=== PATIENT | male | born 1950 | race Caucasian/White ===

== ENCOUNTER 2016-12-01 05:51 | Inpatient (IN) | payer OTHER, BC ==
[2016-11-29 16:46] VITALS: BMI 34.3
[2016-12-01] MEDS ORDERED: BUPIVACAINE HCL/PF 2.5 MG/ML - 30 ML VIAL IJ ONE (07:01)
[2016-12-01] MEDS ORDERED: MIDAZOLAM HCL 2 MG/2 ML SINGLE DOSE VIAL ONE (07:01)
[2016-12-01] MEDS ORDERED: DEXAMETHASONE SOD PHOSPHATE/PF 10 MG/ML SDV ONE (07:01)
[2016-12-01] MEDS ORDERED: SODIUM CHLORIDE 0.9% P/F 10 ML VIAL IJ ONE (07:01)
[2016-12-01] MEDS ORDERED: ROPIVICAINE 0.2%/MORPH PF/KETOROLAC - 51ML DISP.SYRINGE IA ONE ×2 (07:59→09:21)
[2016-12-01] MEDS ORDERED: TRANEXAMIC ACID 1000 MG/10 ML VIAL ONE ×3 (07:59→08:58)
[2016-12-01] MEDS ORDERED: SUCCINYLCHOLINE CHLORIDE 200 MG/10 ML VIAL ONE (08:22)
[2016-12-01] MEDS ORDERED: BUPIVACAINE HCL/PF 0.5% (5MG/ML) 10 ML VIAL ONE (08:23)
[2016-12-01] MEDS ORDERED: ceFAZolin SODIUM 1 GM VIAL ONE ×2 (08:58→11:02)
[2016-12-01] MEDS ORDERED: KETOROLAC TROMETHAMINE 30 MG/1 ML VIAL ONE (09:07)
[2016-12-01] MEDS ORDERED: ONDANSETRON 4 MG/2 ML VIAL ONE (09:07)
[2016-12-01] MEDS ORDERED: DEXAMETHASONE SOD PHOSPHATE 4 MG/1 ML VIAL ONE (09:07)
[2016-12-01] MEDS ORDERED: TRANEXAMIC ACID 1000 MG/10 ML VIAL IVPUSH ONE (09:21)
[2016-12-01] MEDS ORDERED: CEFAZOLIN 2 GM in DEXTROSE 5%-WATER - 50 ML IVPB ONE (09:21)
[2016-12-01] MEDS ORDERED: GABAPENTIN 300 MG CAPSULE (FP) PO ONE (09:21)
[2016-12-01] MEDS ORDERED: CELECOXIB 200 MG CAPSULE PO ONE (09:21)
[2016-12-01] MEDS ORDERED: oxyCODONE HCL 10 MG SUSTAINED ACTING TABLET PO ONE (09:21)
[2016-12-01] MEDS ORDERED: PATIENT'S OWN MEDICATION (NON-FORMULARY) (Tadalafil [Cialis] 20 MG) PO PRN (09:39)
[2016-12-01] MEDS ORDERED: PATIENT'S OWN MEDICATION (NON-FORMULARY) (Ascorbate Calcium [Vitamin C] 500 MG) PO SCH (09:45)
[2016-12-01] MEDS ORDERED: PATIENT'S OWN MEDICATION (NON-FORMULARY) (Multivit-Min/Fa/Lycopen/Lutein [Centrum Silver T PO SCH (10:00)
[2016-12-01] MEDS ORDERED: PATIENT'S OWN MEDICATION (NON-FORMULARY) (Lisinopril/Hydrochlorothiazide [Lisinopril-Hctz PO SCH (10:00)
[2016-12-01] MEDS ORDERED: PROPOFOL 20 ML ONE (10:04)
[2016-12-01] MEDS ORDERED: ONDANSETRON 4 MG/2 ML VIAL IVPUSH PRN (12:48)
[2016-12-01] MEDS ORDERED: ROPIVACAINE 0.2% 400ML 400 ML ML NR ONE (12:48)
[2016-12-01] MEDS ORDERED: LACTATED RINGERS SOLUTION 1,000 ML IV SCH ×2 (13:00→13:30)
[2016-12-01] MEDS ORDERED: ONDANSETRON 4 MG/2 ML VIAL IVPB PRN (13:04)
[2016-12-01] MEDS ORDERED: MAG HYDROX/AL HYDROX/SIMETH 30 ML UNIT-DOSE CUP PO PRN (13:05)
[2016-12-01] MEDS ORDERED: oxyCODONE HCL 5 MG TABLET ONE (13:18)
[2016-12-01] MEDS: ACETAMINOPHEN 325 MG TABLET (FP) PO SCH ×2 (13:20→20:16)
[2016-12-01] MEDS: oxyCODONE HCL 5 MG TABLET PO PRN ×3 (13:20→21:14)
[2016-12-01] MEDS ORDERED: TRANEXAMIC ACID 1000 MG/10 ML VIAL IVPB ONE (14:00)
[2016-12-01] MEDS: CEFAZOLIN 2 GM/D5W 50 ML IVPB SCH (16:48)
[2016-12-01] MEDS ORDERED: PT OWN MED DRAWER 7, Y5N ONE (21:09)
[2016-12-01] MEDS: ATORVASTATIN CA 10 MG TABLET (FP) PO SCH (21:16)
[2016-12-01] MEDS: GABAPENTIN 300 MG CAPSULE (FP) PO SCH (21:16)
[2016-12-01] MEDS: SENNOSIDES/DOCUSATE COMBO (SENNA PLUS) TABLET (UD) PO SCH (21:16)
[2016-12-01] MEDS: amLODIPine BESYLATE 5 MG TABLET (FP) PO SCH (21:16)
[2016-12-01] MEDS: ASCORBIC ACID 500 MG TABLET (FP) PO SCH (21:16)
[2016-12-01] MEDS: FERROUS SO4 325 MG TABLET (FP) PO SCH (21:16)
[2016-12-01] MEDS: oxyCODONE HCL 10 MG SUSTAINED ACTING TABLET PO SCH (21:16)
[2016-12-01] MEDS: LATANOPROST 0.005% OPHTH SOLN 2.5ML BOTTLE OU SCH (22:39)
[2016-12-02] MEDS: CEFAZOLIN 2 GM/D5W 50 ML IVPB SCH (00:18)
--- NOTE | 2016-12-02 01:34 | CONSULT ---
Consultation: REQUESTING PROVIDER: Dr. Westbrook CONSULT REQUEST: We have been asked to medically evaluate this patient for ( Medical Management). HISTORY OF PRESENT ILLNESS: This is a 66 y/o male s/p L-TKR POD #0. Patient reports no pain to Left knee PS 0/10. Patient reports having full sensation to his left leg and toes. Patient reports voiding, no flatulence, no BM. Patient tolerates PO fluids and solids. Patient denies fever, chills, cough, SOB, CP, AP , N/V/D, dysuria. PAST MEDICAL HISTORY: HTN HLD Vitamin D deficiency Prostate Ca PAST SURGICAL HISTORY: Radiation Tx- Prostate Ca 2010 Vasectomy 1996 R knee (torn meniscus) L knee (torn meniscus) 1995 Torn L Achilles Tendon 1986 SOCIAL HISTORY: Tobacco: Never Alcohol: Socially- Beer and Wine, consumed weekly Drugs: None Lives with Spouse FAMILY HISTORY: Mother: Lung Ca, ?Liver Ca age 76 Father: Accident, age 59 Allergies Allergy/AdvReac Type Severity Reaction Status Date / Time Penicillins Allergy Severe BLISTERS Verified 11/29/16 16:33 Home Medication List Medication Instructions Recorded Confirmed Type Amlodipine Besylate 5 mg PO HS 11/29/16 12/01/16 History Ascorbate Calcium [Vitamin C] 500 mg PO Q48H 11/29/16 12/01/16 History Atorvastatin Ca [Lipitor] 10 mg PO HS 11/29/16 12/01/16 History Cholecalciferol (Vitamin D3) 1,000 unit PO Q48H 11/29/16 12/01/16 History [Vitamin D3 -] Cyclobenzaprine HCl [Flexeril 10 5 mg PO BID PRN 11/29/16 12/01/16 History mg] Latanoprost 0.005% Eye Drops 1 drop OU HS 11/29/16 12/01/16 History [Xalatan 0.005% Eye Drops -] Lisinopril/Hydrochlorothiazide 1 each PO DAILY 11/29/16 12/01/16 History [Lisinopril-Hctz 20-12.5 mg Tab] Multivit-Min/FA/Lycopen/Lutein 1 each PO DAILY 11/29/16 12/01/16 History [Centrum Silver Tablet] Tadalafil [Cialis] 20 mg PO DAILY PRN 11/29/16 12/01/16 History REVIEW OF SYSTEMS: CONSTITUTIONAL: Absent: fever, chills, diaphoresis, generalized weakness, malaise, loss of appetite, weight change HEENT: Absent: rhinorrhea, nasal congestion, throat pain, throat swelling, difficulty swallowing, mouth swelling, ear pain, eye pain, visual changes CARDIOVASCULAR: Absent: chest pain, syncope, palpitations, irregular heart rate, lightheadedness , peripheral edema RESPIRATORY: Absent: cough, shortness of breath, dyspnea with exertion, orthopnea, wheezing, stridor, hemoptysis GASTROINTESTINAL: Absent: abdominal pain, abdominal distension, nausea, vomiting, diarrhea, constipation, melena, hematochezia GENITOURINARY: Absent: dysuria, frequency, urgency, hesitancy, hematuria, flank pain, genital pain MUSCULOSKELETAL: Absent: myalgia, arthralgia, joint swelling, back pain, neck pain SKIN: Absent: rash, itching, pallor HEMATOLOGIC/IMMUNOLOGIC: Absent: easy bleeding, easy bruising, lymphadenopathy, frequent infections ENDOCRINE: Absent: unexplained weight gain, unexplained weight loss, heat intolerance, cold intolerance NEUROLOGIC: Absent: headache, focal weakness or paresthesias, dizziness, unsteady gait, seizure, mental status changes, bladder or bowel incontinence PSYCHIATRIC: Absent: anxiety, depression, suicidal or homicidal ideation, hallucinations. PHYSICAL EXAMINATION Vital Signs - 24 hr 12/01/16 12/01/16 12/01/16 06:58 07:06 12:35 Temperature 98.2 F 97.9 F Pulse Rate 74 70 Respiratory 18 18 Rate Blood Pressure 142/80 123/58 O2 Sat by Pulse 97 100 Oximetry (%) 12/01/16 12/01/16 12/01/16 12:40 12:45 12:50 Temperature Pulse Rate 67 66 67 Respiratory 16 16 16 Rate Blood Pressure 123/59 122/59 122/58 O2 Sat by Pulse 100 100 100 Oximetry (%) 12/01/16 12/01/16 12/01/16 13:05 13:20 13:30 Temperature 97.9 F 97.9 F 97.9 F Pulse Rate 63 68 68 Respiratory 16 18 18 Rate Blood Pressure 130/66 136/81 136/81 O2 Sat by Pulse 98 98 Oximetry (%) 12/01/16 12/01/16 20:42 22:37 Temperature 98.7 F Pulse Rate 79 Respiratory 18 18 Rate Blood Pressure 123/58 O2 Sat by Pulse 98 99 Oximetry (%) GENERAL: Awake, alert, and fully oriented, in no acute distress. HEAD: Normal with no signs of trauma. EYES: Pupils equal, round and reactive to light, extraocular movements intact, sclera anicteric, conjunctiva clear. No lid lag. EARS, NOSE, THROAT: Ears normal, nares patent, oropharynx clear without exudates. Moist mucous membranes. NECK: Normal range of motion, supple without lymphadenopathy, JVD, or masses. LUNGS: Breath sounds equal, clear to auscultation bilaterally. No wheezes, and no crackles. No accessory muscle use. HEART: Regular rate and rhythm, normal S1 and S2 without murmur, rub or gallop. ABDOMEN:Obese, soft, nontender, not distended, normoactive bowel sounds, no guarding, no rebound, no masses. No hepatomegaly or splenomegaly. MUSCULOSKELETAL: Normal range of motion at all joints. No bony deformities or tenderness. No CVA tenderness. +surgical dressing dry and intact, +icepack UPPER EXTREMITIES: 2+ pulses, warm, well-perfused. No cyanosis. No clubbing. Cap refill <2 seconds. No peripheral edema. LOWER EXTREMITIES: 2+ pulses, warm, well-perfused. No calf tenderness. No peripheral edema. NEUROLOGICAL: Cranial nerves II-XII intact. Normal speech. Gait not observed. PSYCHIATRIC: Cooperative. Good eye contact. Appropriate mood and affect. SKIN: Warm, dry, normal turgor, no rashes or lesions noted. ASSESSMENT/PLAN: 66 y/o male with a PMHx of: HTN, HLD, OA, Prostate Ca. s/p L-TKR, POD #0 1. Continue Ortho Regimen 2. Monitor CBC, BMP 3. Monitor BP 4. Continue home meds, for HCTZ, check K, Cr, Hold for JANICE/Hyperkalemia 5. DVT/PPI Prophylaxis 6. PT 7. Incentive Spirometer Dispo: We will continue to follow the patient. Thank you for this consultative opportunity. Problem List - Problems (1) Status post total left knee replacement Code(s): Z96.652 - PRESENCE OF LEFT ARTIFICIAL KNEE JOINT (2) HTN (hypertension) Code(s): I10 - ESSENTIAL (PRIMARY) HYPERTENSION (3) HLD (hyperlipidemia) Code(s): E78.5 - HYPERLIPIDEMIA, UNSPECIFIED (4) Vitamin D deficiency Code(s): E55.9 - VITAMIN D DEFICIENCY, UNSPECIFIED (5) Prostate CA Code(s): C61 - MALIGNANT NEOPLASM OF PROSTATE (6) DVT prophylaxis Code(s): IKJ3323 - Visit type - Emergency Visit Emergency Visit: No - New Patient This patient is new to me today: Yes Date on this admission: 12/01/16 - Critical Care Critical Care patient: No
[2016-12-02] MEDS: ACETAMINOPHEN 325 MG TABLET (FP) PO SCH ×4 (02:00→20:43)
[2016-12-02] MEDS: oxyCODONE HCL 5 MG TABLET PO PRN ×4 (06:35→15:12)
[2016-12-02] MEDS: ASPIRIN 81 MG CHEWABLE TABLETS PO SCH ×2 (08:38→20:43)
[2016-12-02] MEDS ORDERED: CHOLECALCIFEROL (VITAMIN D3) 1,000 UNIT TABLET (FP) PO SCH (10:00)
[2016-12-02] MEDS ORDERED: ASCORBIC ACID 500 MG TABLET (FP) PO SCH (10:00)
[2016-12-02] MEDS: FERROUS SO4 325 MG TABLET (FP) PO SCH ×2 (10:10→21:53)
[2016-12-02] MEDS: PANTOPRAZOLE 40 MG TABLET (FP) PO SCH (10:11)
[2016-12-02] MEDS: MULTIVITAMINS THER W-MINERALS COMBO TABLET (FP) PO SCH (10:11)
[2016-12-02] MEDS: ASCORBIC ACID 500 MG TABLET (FP) PO SCH ×2 (10:11→21:51)
[2016-12-02] MEDS: HYDROCHLOROTHIAZIDE 12.5 MG CAPSULE (FP) PO SCH (10:11)
[2016-12-02] MEDS: LISINOPRIL 20 MG TABLET (FP) PO SCH (10:12)
[2016-12-02] MEDS: CELECOXIB 200 MG CAPSULE PO SCH (10:12)
[2016-12-02] MEDS: SENNOSIDES/DOCUSATE COMBO (SENNA PLUS) TABLET (UD) PO SCH ×2 (10:13→21:52)
[2016-12-02] MEDS: GABAPENTIN 300 MG CAPSULE (FP) PO SCH ×2 (10:13→21:53)
[2016-12-02] MEDS: oxyCODONE HCL 10 MG SUSTAINED ACTING TABLET PO SCH ×2 (10:13→21:52)
--- NOTE | 2016-12-02 10:24 | PN ---
Progress Note (short form) - Note Progress Note: 66M POD1 s/p TKR with spinal and CACB doing well. Pt pulled catheter out this morning. Site clean and dry. Sensory and motor function intact. AVSS, pain well controlled, no complications reported
--- NOTE | 2016-12-02 10:42 | PN ---
[id number] reports no pain to Left knee PS 0/10. Patient reports having full sensation to his left leg and toes. Patient reports voiding, no flatulence, no BM. Patient tolerates PO fluids and solids. Patient denies fever, chills, cough , SOB, CP, AP, N/V/D, dysuria. Vital Signs Period Temp Pulse Resp BP Sys/Sim Pulse Ox Last 24 Hr 97.9 F-98.7 F 63-83 16-19 122-136/58-81 98-100 GENERAL: The patient is awake, alert, and fully oriented, in no acute distress. HEAD: Normal with no signs of trauma. EYES: PERRL, extraocular movements intact, sclera anicteric, conjunctiva clear. No ptosis. ENT: Ears normal, nares patent, oropharynx clear without exudates, moist mucous membranes. NECK: Trachea midline, full range of motion, supple. LUNGS: Breath sounds equal, clear to auscultation bilaterally, no wheezes, no crackles, no accessory muscle use. HEART: Regular rate and rhythm, S1, S2 without murmur, rub or gallop. ABDOMEN: Soft, nontender, nondistended, normoactive bowel sounds, no guarding, no rebound, no hepatosplenomegaly, no masses. EXTREMITIES: 2+ pulses, warm, well-perfused, no edema. NEUROLOGICAL: Cranial nerves II through XII grossly intact. Normal speech, gait not observed. PSYCH: Normal mood, normal affect. SKIN: Warm, dry, normal turgor, no rashes or lesions noted Active Medications Generic Name Dose Route Start Last Admin Trade Name Freq PRN Reason Stop Dose Admin Acetaminophen 650 mg 12/01/16 20:00 12/02/16 08:10 Tylenol - PO 12/04/16 19:59 650 mg Q6H SAHRA Administration Al Hydroxide/Mg Hydroxide 30 ml 12/01/16 13:05 Mylanta Oral Suspension - PO Q4H PRN INDIGESTION Amlodipine Besylate 5 mg 12/01/16 22:00 12/01/16 21:16 Norvasc - PO 5 mg HS SAHRA Administration Ascorbic Acid 500 mg 12/01/16 22:00 12/02/16 10:11 Vitamin C - PO 500 mg BID SAHRA Administration Aspirin 81 mg 12/02/16 08:00 12/02/16 08:38 Asa - PO 12/31/16 07:59 81 mg BID@0800,2000 SAHRA Administration Atorvastatin Calcium 10 mg 12/01/16 22:00 12/01/16 21:16 Lipitor - PO 10 mg HS SAHRA Administration Celecoxib 200 mg 12/02/16 10:00 12/02/16 10:12 Celebrex - PO 200 mg DAILY SAHRA Administration Cholecalciferol 1,000 unit 12/02/16 10:00 12/02/16 10:14 Vitamin D3 - PO 1,000 unit Q48H SAHRA Administration Fentanyl 50 mcg 12/01/16 12:52 12/01/16 13:00 Sublimaze Injection - IVPUSH 12/04/16 12:53 50 mcg [id number] PRN Administration PAIN Ferrous Sulfate 325 mg 12/01/16 22:00 12/02/16 10:10 Feosol - PO 325 mg BID SAHRA Administration Gabapentin 300 mg 12/01/16 22:00 12/02/16 10:13 Neurontin - PO 300 mg BID SAHRA Administration Hydrochlorothiazide 12.5 mg 12/02/16 10:00 12/02/16 10:11 Hctz - PO 12.5 mg DAILY SAHRA Administration Lactated Ringer's 1,000 mls @ 125 mls/hr 12/01/16 13:30 Lactated Ringers Solution IV ASDIR SAHRA Latanoprost 1 drop 12/01/16 22:00 12/01/16 22:39 Xalatan 0.005% Eye Drops - OU 1 drop HS SAHRA Administration Lisinopril 20 mg 12/02/16 10:00 12/02/16 10:12 Prinivil PO 20 mg DAILY SAHRA Administration Multivitamins/Minerals 1 each 12/02/16 10:00 12/02/16 10:11 Theragran-M PO 1 each DAILY SAHRA Administration Non-Formulary Medication 20 mg 12/01/16 09:39 Tadalafil [Cialis] PO DAILY PRN OCCASION Ondansetron HCl 4 mg 12/01/16 13:04 12/01/16 13:03 Zofran Injection IVPB 4 mg Q6H PRN Administration NAUSEA AND/OR VOMITING Oxycodone HCl 10 mg 12/01/16 22:00 12/02/16 10:13 Oxycontin - PO 12/04/16 12:49 10 mg BID SAHRA Administration Oxycodone HCl 5 mg 12/01/16 12:48 12/02/16 08:47 Roxicodone - PO 12/04/16 12:49 5 mg Q4H PRN Administration PAIN Oxycodone HCl 10 mg 12/01/16 12:48 12/02/16 06:35 Roxicodone - PO 12/04/16 12:50 10 mg Q4H PRN Administration PAIN Pantoprazole Sodium 40 mg 12/02/16 10:00 12/02/16 10:11 Protonix - PO 40 mg DAILY SAHRA Administration Senna/Docusate Sodium 2 tablet 12/01/16 22:00 12/02/16 10:13 Pericolace - PO 2 tablet BID SAHRA Administration ASSESSMENT/PLAN: 1) s/o left TKR, POD #1 - prn pain medication - pt as per orthopedist - incentive spirometer 2) card hypertension - continue norvasc, lisinopril, and HCTZ--> monitor serum sodium while on hctz f/e/n - low sodium diet - monitor electrolytes ppx - protonix - dvt ppx as per ortho - pt - oob/scd Dispo: We will continue to follow the patient. Thank you for this consultative opportunity. Visit type - Emergency Visit Emergency Visit: Yes ED Registration Date: 12/01/16 Care time: The patient presented to the Emergency Department on the above date and was hospitalized for further evaluation of their emergent condition. - New Patient This patient is new to me today: Yes Date on this admission: 12/02/16 - Critical Care Critical Care patient: No - Discharge Referral Referred to [facility] Med P.C.: No
--- NOTE | 2016-12-02 12:44 | OP ---
DATE OF OPERATION: 12/01/2016 SURGEON: Ken Chirinos MD TASSEL SNIPPER: Cristin Demarco, whose skilled surgical assistance was necessary for the retraction and protection of vital structures and for the handling and implementation of precise and delicate surgical instrumentation as well as the overall safe conveyance of the procedure PREOPERATIVE DIAGNOSIS: Severe left knee osteoarthritis with severe varus deformity and severe flexion contracture. POSTOPERATIVE DIAGNOSIS: Severe left knee osteoarthritis with severe varus deformity and severe flexion contracture. PROCEDURE: Computer-navigated left total knee replacement. ANESTHESIOLOGIST: Dr. Taylor. TYPE OF ANESTHESIA: Adductor canal block with an indwelling catheter as well as a spinal. FLUID GIVEN: Crystalloid. ESTIMATED BLOOD LOSS: 150 mL. ANTIBIOTICS: Kefzol 2 g was given preoperatively for prophylaxis against infection. A 3rd gram was given at the time of the wound closure. There was 1 g of tranexamic acid given preoperatively, a 2nd gram was given at the time of wound closure, a 3rd gram was instilled into the knee at the time of wound closure. HARDWARE USED: [employer] and [employer] PFC Sigma PCL-retaining knee replacement system with a size 6 Pressfit femur, size 6 cemented tibia, and a 10-mm polyethylene spacer. Patella was left unresurfaced. One bag of bone cement was used. COMPLICATIONS: None. INDICATIONS: The patient is a 66-year-old male with a longstanding history of knee injury, knee osteoarthritis. He had undergone partial meniscectomies by my former associates. He had been followed in the office for knee osteoarthritis by my associate, Dr. Jean Baptiste, who after extensive conservative treatment the patient said his knee pain was severe. He had discussion with Dr. Jean Baptiste about this as well as being referred to see me about knee replacement surgery. We discussed what is involved with knee replacement surgery. We did also discuss additional conservative treatment measures such as physical therapy, injection therapy, weight loss, use of a cane versus surgery. After thorough discussion with the patient in the office, he wished to proceed with surgery. He understands the risks involved with the procedure. The risks of knee replacement surgeon were explained to be extensive and to include, but not be limited to, infection, stiffness, continued pain, chance that not all his symptoms may be relieved, chance that his knee replacement could loosen up during its intended lifespan, chance that he could have a blood clot that could spread from his legs to his lungs and even cause , and this can occur despite measures of thromboembolic prophylaxis, chance that he could have a permanent neurologic injury leaving a permanent loss of use of function in the leg, chance that should he could have permanent, chronic pain, so called regional pain syndrome, chance that should he develop an infection it would be a complete disaster necessitating removing his knee, placing him on long-term antibiotics, and chance that should an infection not be curable, he could be left without a knee replacement and a possible, but unlikely scenario, should he develop an infection that is life threatening may require an amputation. The patient understands this. He has identified his left knee as the operative site. He understands the risks that are involved with the procedure. I have signed his knee, and the site was verified with the operating room staff, and he agrees to proceed with the planned procedure. DESCRIPTION OF PROCEDURE: After administration of regional anesthetic with an indwelling adductor canal catheter, the patient was brought into the operating room where a spinal anesthetic was administered by the anesthesiologist. Tourniquet was placed high on the left leg, and the left leg was then prepped and draped in the usual sterile manner. Tourniquet was not inflated during the procedure. Standard midline incision approximately 15-20 cm in length was made. The incision was carried down to the subcutaneous tissues onto the extensor mechanism of the knee. Using electrocautery device and Aqu[employer]ant[employer] device throughout the procedure, the quadriceps tendon was entered superiorly roughly at the junction between the medial and central third. Incision was carried down to the superior pole of the patella curving medially leaving a cuff of tissue of the quadriceps tendon and medial patella retinaculum for later repair and reapproximation. The patella was everted. The patient had obvious, severe osteoarthritic changes predominantly of the medial compartment, which had polished, eburnated bone. The lateral compartment also had some degenerative changes as did the patellofemoral compartment. All osteophytes and menisci were removed. ACL was released. The medial collateral ligament was recessed. The PCL was recessed. Two sets of 4-mm guide pins were then placed in the medial aspect of the distal femur and medial aspect of the proximal tibia to which the computer ray were then attached. The hip center of rotation as well as the patient's bony anatomy was then entered into the computer navigation device. The patient had severe varus deformity measured on the computer after a generous medial release 10 degrees as well as having a flexion contracture of over 10 degrees despite extensive soft tissue released. The tibia then the femur were then machined to correct the patient's severe varus deformity and flexion contracture. The femur and tibia were machined to accept a size 6 trial component. The various trial tibial trays were then impacted and placed. The patient had correction to neutral varus/valgus alignment with full and easy extension and full and easy flexion with good tracking of the patella with the size 6 trial femur land tibial components with a 10-mm polyethylene spacer. The trial components were then removed. The jet lavage was then brought in to create clean, bony cancellous surfaces. One bag of bone cement was then mixed in a vacuum mixing bowl, and this was then precoated on the exposed cancellous surface of the tibia as well as being precoated on the tibial component. The tibial component was then impacted and placed. All excess bone cement was then removed. The final femoral component was then impacted and placed. The knee was then left in extension with a trial polyethylene tibial tray in full extension until the cement had hardened. After the cement had hardened, the knee was taken through a range of motion and had full and easy extension, full and easy flexion with balanced flexion and extension gaps, neutral varus/valgus alignment. All excess bony cement was then removed. The wounds were then irrigated with copious amounts of antibiotic normal saline solution. The final tibial polyethylene tray was then impacted and placed and found to have equal alignment and stability with excellent full and easy extension and flexion, neutral varus/valgus alignment, balanced flexion and extension gaps thorough the range with good tracking of the patella. A dilute Betadine solution was then instilled into the knee and left to sit for 3 minutes. This was evacuated, and the wound was irrigated once again with copious amounts of antibiotic normal saline solution. The extensor mechanism was then closed with a No. 2 FiberWire and No. 1 Vicryl sutures. Then 1 g of tranexamic acid in a pain mixture cocktail of Toradol, bupivacaine, and were instilled into the knee. The subcutaneous tissues were closed with 2-0 Vicryl sutures and then a running 3-0 Biosyn with the knee maximally flexed was then applied. Dermabond was then applied to the wounds as well as the puncture sites for the guidepins for the computer navigation device. These were closed with Dermabond after the Dermabond had hardened. Aquacel dressings were then applied. An ABD pad was then applied, and then thigh-high Thompson stockings were placed on the patient. Of note, the patient had a thigh-high Thompson stocking and a sequential compression device on his nonoperative leave throughout the procedure. Postoperatively allow DVT prophylaxis with early ambulation, bilateral thigh-high Thompson stockings, sequential compression devices, and aspirin for 4 weeks. We are going to discontinue prophylactic antibiotics within 24 hours. We are not going to use a Christopher catheter if at all possible to prevent a dreaded urinary tract infection and possibly spreading to a periprosthetic infection. KEN CHIRINOS M.D. [id number]
[2016-12-02] MEDS ORDERED: PT OWN MED DRAWER 7, Y5N ONE (21:48)
[2016-12-02] MEDS: ATORVASTATIN CA 10 MG TABLET (FP) PO SCH (21:51)
[2016-12-02] MEDS: amLODIPine BESYLATE 5 MG TABLET (FP) PO SCH (21:51)
[2016-12-02] MEDS: LATANOPROST 0.005% OPHTH SOLN 2.5ML BOTTLE OU SCH (21:53)
[2016-12-03] MEDS: ACETAMINOPHEN 325 MG TABLET (FP) PO SCH ×2 (03:12→09:08)
[2016-12-03] MEDS: oxyCODONE HCL 5 MG TABLET PO PRN ×2 (05:45→08:54)
[2016-12-03 06:18] VITALS: BP 162/74; PULSE 83; TEMP 99.1
[2016-12-03] MEDS ORDERED: MAGNESIUM HYDROX 2400MG/30ML ORAL SUSPENSION 30 ML CUP PO ONE (08:15)
[2016-12-03] MEDS: ASPIRIN 81 MG CHEWABLE TABLETS PO SCH (08:55)
[2016-12-03] MEDS: HYDROCHLOROTHIAZIDE 12.5 MG CAPSULE (FP) PO SCH (09:09)
[2016-12-03] MEDS: GABAPENTIN 300 MG CAPSULE (FP) PO SCH (09:11)
[2016-12-03] MEDS: SENNOSIDES/DOCUSATE COMBO (SENNA PLUS) TABLET (UD) PO SCH (09:11)
[2016-12-03] MEDS: MULTIVITAMINS THER W-MINERALS COMBO TABLET (FP) PO SCH (09:12)
[2016-12-03] MEDS: CELECOXIB 200 MG CAPSULE PO SCH (09:12)
[2016-12-03] MEDS: ASCORBIC ACID 500 MG TABLET (FP) PO SCH (09:13)
[2016-12-03] MEDS: LISINOPRIL 20 MG TABLET (FP) PO SCH (09:13)
[2016-12-03] MEDS: oxyCODONE HCL 10 MG SUSTAINED ACTING TABLET PO SCH (10:40)
[2016-12-03] MEDS: PANTOPRAZOLE 40 MG TABLET (FP) PO SCH (10:43)
[2016-12-03] MEDS: FERROUS SO4 325 MG TABLET (FP) PO SCH (10:43)
--- NOTE | 2016-12-03 14:28 | PATH ---
Surgical Pathology Report Patient Name: SHANI MANZO Med. Rec. #: [id number] /Age/Gender: 1950 (Age: 66) / M Account: [id number] Location: [facility] MED-SURG Taken: 12/01/2016 Received: 12/01/2016 Reported: 12/03/2016 Physicians: Seema Westbrook M.D. Specimen(s) Received BONE LEFT KNEE Clinical History Osteoarthritis left knee Final Diagnosis BONE, LEFT KNEE, TOTAL KNEE REPLACEMENT: DEGENERATIVE JOINT DISEASE. Electronically Signed Gavi Shaikh M.D. Gross Description Received in formalin labeled "bone left knee," is a 15.0 x 11.5 x 2.0 cm aggregate of multiple irregular portions of bone and soft tissue. The tibial plateau measures 8.7 x 6.1 x 1.5 cm. There is a 3 cm in greatest dimension area of eburnation present. The remaining articular surfaces are garcia-yellow and diffusely granular. The underlying trabecular bone is yellow and hard. Analytical Sciences Director sections are submitted in one cassette, following decalcification. /12/02/[address] [facility]
== END 2016-12-03 14:00 | disposition home health service (06) | DRG 470 ==
LOC: FM/S 05:51
PROVIDERS: ADMIT Orthopaedic Surgery; ATTEND Orthopaedic Surgery
PROC: 8E0YXBZ Computer Assisted Procedure of Lower Extremity (ICD-10-PCS; 2016-12-01)
PROC: 0SRD0J9 Replacement of Left Knee Joint with Synthetic Substitute, Cemented, Open Approach (ICD-10-PCS; principal; 2016-12-01 09:30)
DX: M17.12 Unilateral primary osteoarthritis, left knee (principal); I10 Essential (primary) hypertension; E78.5 Hyperlipidemia, unspecified; E55.9 Vitamin D deficiency, unspecified; C61 Malignant neoplasm of prostate
CPT/HCPCS: 73560-TC-LT; 88304-TC; 88311-TC; 94760; 97116-GP; 97162-PG